=== PATIENT | male | born 1955 | race Caucasian/White ===

== ENCOUNTER 2018-04-23 12:34 | Emergency (ER) | payer OTHER, SELFPAY ==
[2018-04-23 12:39] VITALS: BP 138/86; PULSE 75; RESP 18; TEMP 36.2; O2SAT 98; BMI 38.0
--- NOTE | 2018-04-23 12:44 | PC.NURSE ---
Patient woke around 0300 with discomfort in right side of his face and headache. Noticed coffee dripping out of right side of face this morning. Patient presents like bells palsy. No other focal neurological deficits. Unable to completely close right eye, weakness in puffing out cheeks on right side. Unable to raise eyebrow on right side
--- NOTE | 2018-04-23 12:59 | ED_ITS ---
HPI - Neuro Symptoms/Deficit <Mena Medel PA-C - Last Filed: 04/23/18 19:47> General Chief Complaint: Neuro Symptoms/Deficit Stated Complaint: RIGHT SIDE NUMBNESS Time Seen by Provider: 04/23/18 12:50 Source: patient Mode of arrival: ambulatory Limitations: no limitations History of Present Illness HPI Narrative: This 63-year-old male awoke late last night/early this morning feeling like the right side of his neck was tender and a bit in the back of his head. He states later, after he got up and showered he noted that it was kind of numb on his tongue and around his face, and aching on the right side of his face. He states that he noticed lack of taste sensation on the right side of his tongue, and had a sensation like he was getting a rash there. He denies any new facial rash or lesions but has a history of HSV and had a recent cold sore on his lower lip that is starting to resolve. He denies any vision change or hearing loss. He denies any weakness or pain elsewhere. No difficulty with speech or swallowing. He denies any fever. He states that he just feels somewhat tired. He states that he went camping over a month ago for about a week, no known bites or exposures Related Data Home Medications Medication Instructions Recorded Confirmed aspirin 162 mg PO DAILY 04/23/18 04/23/18 fluticasone [Flonase Allergy 1 spray INTRANASAL DAILY 04/23/18 04/23/18 Relief] loratadine 10 mg PO DAILY 04/23/18 04/23/18 naproxen sodium [Aleve] 2 tab PO QAM 04/23/18 04/23/18 red yeast rice 1 cap PO QAM 04/23/18 04/23/18 vit C-s.kcywqh-lmgatd-wcjxe sd 1 cap PO QAM 04/23/18 04/23/18 [Tart Torres] Previous Rx's Medication Instructions Recorded prednisone 60 mg PO DAILY #21 tab 04/23/18 valacyclovir [Valtrex] 1,000 mg PO Q8H #21 tab 04/23/18 Allergies Allergy/AdvReac Type Severity Reaction Status Date / Time Penicillins Allergy Verified 04/23/18 12:39 Sulfa (Sulfonamide Allergy Verified 04/23/18 12:39 Antibiotics) Review of Systems <Mena Medel PA-C - Last Filed: 04/23/18 19:47> Review of Systems All systems reviewed & are unremarkable except as noted in HPI and below PFSH <Mena Medel PA-C - Last Filed: 04/23/18 19:47> Comment: rare ETOH Exam <Mena Medel PA-C - Last Filed: 04/23/18 19:47> Narrative Exam Narrative: GENERAL APPEARANCE: Patient sitting comfortably, in no distress. HEENT: PERRL, EOMI, normal TMs and oropharynx NECK: Supple, no masses LUNGS: Clear to auscultation bilaterally. HEART: Rate and rhythm regular without murmur, normal S1 and S2, no S3 or S4. DERMATOLOGIC: There is a dried vesicle on the center of the lower lip, and patch of erythema on the tip of the tongue NEUROLOGIC: Alert and oriented, normal speech, and coordination. Right facial musculature is weak throughout compared to the left. Loss of forehead wrinkles , ability to smile, and maintain eye closure noted on the right side. Left is normal. He is able to completely close the right eyelid MUSCULOSKELETAL: Full Csp AROM Initial Vital Signs Initial Vital Signs: Vital Signs Temperature 97.1 F L 04/23/18 12:39 Pulse Rate 75 04/23/18 12:39 Respiratory Rate 18 04/23/18 12:39 Blood Pressure 138/86 04/23/18 12:39 Pulse Oximetry 98 04/23/18 12:39 <Tirso Patricia MD - Last Filed: 04/23/18 20:24> Initial Vital Signs Initial Vital Signs: Vital Signs Temperature 97.1 F L 04/23/18 12:39 Pulse Rate 75 04/23/18 12:39 Respiratory Rate 18 04/23/18 12:39 Blood Pressure 138/86 04/23/18 12:39 Pulse Oximetry 98 04/23/18 12:39 Course <Mena Medel PA-C - Last Filed: 04/23/18 19:47> Additional Information: Patient is able to completely close the eye and is only mildly disabled however advised starting on antiviral as well as steroids given his history of known HSV and recent cold sore. Vital Signs - 8 hr 04/23/18 12:39 04/23/18 13:39 Temperature 97.1 F L Pulse Rate 75 82 Respiratory Rate 18 15 Blood Pressure 138/86 Blood Pressure [Left Arm] 128/74 Pulse Oximetry 98 100 <Tirso Patricia MD - Last Filed: 04/23/18 20:24> Vital Signs - 8 hr 04/23/18 12:39 04/23/18 13:39 Temperature 97.1 F L Pulse Rate 75 82 Respiratory Rate 18 15 Blood Pressure 138/86 Blood Pressure [Left Arm] 128/74 Pulse Oximetry 98 100 Discharge Plan Departure Patient Disposition: Home Clinical Impression: Garcia's palsy Discharge Date/Time: 04/23/18 13:44 Interventions: ED Discharge Assessment Last Done: 04/23/18 13:43 Instructions: Garcia's Palsy Activity Restrictions/Additional Instructions: Return if you have any acutely worsening or new symptoms. Otherwise, please start the prednisone as soon as you get it. I have also prescribed an antiviral medicine called Valtrex, which may be helpful given your history of herpes/cold sores, especially on your lip and tongue recently. Please follow- up with your PCP in the next week to reassess your progress. Use your eye moisturizing drops as needed. Do not take NSAIDs while you are on the prednisone (you can take tylenol as needed) Prescriptions: New prednisone 20 mg tablet 60 mg PO DAILY Qty: 21 RF: 0 valacyclovir [Valtrex] 500 mg tablet 1,000 mg PO Q8H Qty: 21 RF: 0 No Action aspirin 81 mg Tablet,Delayed Release (Dr/Ec) 162 mg PO DAILY RF: 0 naproxen sodium [Aleve] 220 mg Tablet 2 tab PO QAM RF: 0 fluticasone [Flonase Allergy Relief] 50 mcg/actuation [place],Suspension 1 spray Intranasal DAILY RF: 0 loratadine 10 mg Tablet 10 mg PO DAILY RF: 0 red yeast rice 600 mg Capsule 1 cap PO QAM RF: 0 vit C-s.ptejcl-wekech-yksaj sd [Tart Torres] 56-282-21-75-20 mg Capsule 1 cap PO QAM RF: 0 Referrals: [facility] [Other] <Tirso Patricia MD - Last Filed: 04/23/18 20:24> Cosign ED Attending Cosignature Attestation: I was present in the ER during this patient's evaluation. I was available for verbal consultation or to see the patient directly if requested. I agree with her evaluation and treatment plan.
[2018-04-23 13:39] VITALS: BP 128/74; PULSE 82; RESP 15; O2SAT 100
== END 2018-04-23 13:44 | disposition home or self-care (01) ==
PROVIDERS: Emergency Provider Internal Medicine
DX: G51.0 Bell's palsy (principal)
CPT/HCPCS: 99283; 99291